=== PATIENT | female | born 1940 | race Caucasian/White ===

== ENCOUNTER → 2018-10-31 | Outpatient (REF) | payer MEDICARE, BC, OTHER ==
[2018-10-31 11:23] LABS: HEMATOCRIT 36.9 % (37.0-47.0); HEMOGLOBIN 12.1 g/dl (12.0-16.0); MEAN CELL VOLUME 96.6 fL CALC (80.0-100.0); MEAN CORPUSCULAR HGB 31.7 pG CALC (26.0-32.0); MEAN CORPUSCULAR HGB CONC 32.8 g/L CALC (32.0-36.0); RED BLOOD COUNT 3.82 mill/uL (4.20-5.60); RED CELL DISTRI WIDTH 12.7 % (11.5-15.5)
[2018-10-31 12:06] LABS: CREATININE 1.4 mg/dL (0.5-1.0); POTASSIUM 4.1 mmol/l (3.5-5.1)
== END | disposition home or self-care (01) ==
LOC: LAB 10:18
PROVIDERS: ATTEND Nurse Practitioner Family
DX: N18.3 Chronic kidney disease, stage 3 (moderate) (principal); I10 Essential (primary) hypertension

== ENCOUNTER 2022-12-30 17:21 | Emergency (ER) | payer MEDICARE, BC, OTHER ==
[2022-12-30] VITALS (20 sets, daily range): BP systolic 99–217; BP diastolic 42–102
[~2022-12-30 17:21] MED LIST: AFEDITAB30 MG PO; ALLERGY RELF10 M3 PO; ASPIRIN ADULT L81 M2 PO; CITALOPRAM40 M1 PO; CLOPIDOGREL75 MG PO; COD LIVE1 PO; DOXAZOSIN4 M1 PO; MAGNESIUM 400 M1 TAB PO; MULTIVITAMI9 PO; ROSUVASTATIN CA20 MG PO; TELMISARTAN40 MG PO; TURMERI1 PO; VITAMIN C1000 MG PO; ZIN2 PO
[2022-12-30 18:24] LABS: BASO% 0.6 % (0-3); EOS% 5.9 % (0-8); HEMATOCRIT 37.2 % (37.0-47.0); HEMOGLOBIN 11.9 g/dl (12.0-16.0); IMMATURE GRANULOCYTES 0.4 % (0.0-5.0); LYMPH% 19.8 % (15-41); MEAN CELL VOLUME 96.6 fL CALC (80.0-100.0); MEAN CORPUSCULAR HGB 30.9 pG CALC (26.0-32.0); MONO% 8.6 % (2-13); NEUT# 3.29 thou/uL (2.00-7.15); NEUT% 64.7 % (42-76); RED BLOOD COUNT 3.85 mill/uL (4.20-5.60); RED CELL DISTRI WIDTH 12.5 % (11.5-15.5)
[2022-12-30 18:33] LABS: INTERNATIONAL NORMALIZED RATIO 1.1 RATIO (0.7-1.3)
[2022-12-30 18:35] LABS: CREATININE 1.3 mg/dL (0.5-1.0)
[2022-12-30 18:41] LABS: ALBUMIN 4.6 g/dL (3.2-5.0)
[2022-12-30 20:29] LABS: URINE BILIRUBIN - DIPSTICK NEGATIVE (NEGATIVE); URINE BLOOD DIPSTICK NEGATIVE (NEGATIVE); URINE COLOR YELLOW; URINE GLUCOSE - DIPSTICK NEGATIVE (NEGATIVE); URINE KETONE TRACE mg/dL (NEGATIVE); URINE LEUK ESTERASE NEGATIVE (NEGATIVE); URINE PROTEIN - DIPSTICK 30 mg/dL (NEG-TRACE); URINE UROBILINOGEN - DIPSTICK 0.2 E.U./dL (0.2)
[2022-12-30 20:34] LABS: URINE NITRITE - DIPSTICK NEGATIVE (Negative)
[2022-12-30 20:35] LABS: URINE RBC 0-2 RBC/hpf (0-5); URINE SQUAMOUS EPITHELIAL CELL FEW EPI/hpf (0-FEW); URINE WBC 0-2 WBC/hpf (0-5)
== END 2022-12-30 23:35 | disposition home or self-care (01) ==
LOC: ED 17:21
PROVIDERS: Nurse Practitioner
DX: I16.0 Hypertensive urgency (principal); I10 Essential (primary) hypertension; R74.8 Abnormal levels of other serum enzymes